=== PATIENT | male | born 1980 | race Caucasian/White ===

== ENCOUNTER 2016-09-03 08:48 | Emergency (ER) | payer SELFPAY ==
[~2016-09-03] VITALS: Ht 165.1 cm; Wt 90.0 kg
[~2016-09-03 08:48] MED LIST: SUBO8MIS SL
[2016-09-03 08:50] VITALS: BP 143/73; PULSE 106; RESP 20; TEMP 98; O2SAT 98
[2016-09-03 09:11] VITALS: BP 150/92; PULSE 92; RESP 16; O2SAT 97
[2016-09-03] MEDS ORDERED: ONDANSETRON ODT 4 MG TAB PO ONE (09:15)
[2016-09-03] MEDS ORDERED: KETOROLAC TROMETHAMINE 60 MG/2 ML (IM) VIAL IM ONE (09:15)
--- NOTE | 2016-09-03 09:28 | PD ---
HPI Chief Complaint: Cold / Flu Symptoms Time Seen by Provider: 09:04 Travel History International Travel<30 days: No Contact w/Intl Traveler<30days: No Traveled to known affect area: No History of Present Illness HPI Patient is a 35 year old male who comes in complaining of cough, fevers and vomiting. He says that he took his children to the beach a few days ago and started coughing immediately afterwards. He is concerned because he says he has had "walking pneumonia" several times. He says he has been feeling induction brazer the mornings, but has not taken his temperature. He says that last night he was coughing so hard he vomited. He says he vomited once this morning, but has eaten a hashbrown since and not vomited. He denies any abdominal pain. He says he feels a little short of breath. He is currently smoking. PFSH Past Medical History Hx Anticoagulant Therapy: No ADHD: Yes Arthritis: No Asthma: No Autoimmune Disease: No Blood Disorders: No Anxiety: Yes Depression: No Heart Rhythm Problems: No Cancer: No Cardiovascular Problems: No High Cholesterol: No Chemotherapy: No Congestive Heart Failure: No COPD: No Cerebrovascular Accident: No Diabetes: No Diminished Hearing: No Endocrine: No Gastrointestinal Disorders: Yes GERD: Yes Glaucoma: No Genitourinary: Yes (PENILE TRAUMA IN 2011) Hepatitis: No Hiatal Hernia: No Hypertension: No Immune Disorder: No Implanted Vascular Access Dvce: No Kidney Stones: No Musculoskeletal: No Neurologic: No Psychiatric: No Reproductive: No Respiratory: No Myocardial Infarction: No Radiation Therapy: No Renal Failure: No Seizures: No Sleep Apnea: No Thyroid Disease: No Ulcer: No Influenza Vaccination: No Past Surgical History AICD: No Body Medical Devices: metal bar in right eyebrow only Genitourinary Surgery: Yes (FOREIGN OBJECT REMOVED FROM PENIS 2011) Pacemaker: No Other Surgery: Yes (malcolm removed from shaft of penis) Social History Alcohol Use: No Tobacco Use: Yes (1/2 PPD) 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 ) Allergies-Medications (Allergen,Severity, Reaction): Coded Allergies: No Known Allergies (Verified , 09/03/16) Reported Meds & Prescriptions Reported Meds & Active Scripts Active Tessalon Perles (Benzonatate) 100 Mg Cap 100 Mg PO TID PRN 7 Days Prednisone 50 Mg Tab 50 Mg PO DAILY 4 Days Proair Hfa 8.5 GM Inh (Albuterol Sulfate) 90 Mcg/Act Aer 2 Puff INH Q4-6H PRN 108 mcg/actuation Reported Suboxone Sublingual Film (Buprenorphine-Naloxone Sublingual Film) 8-2 Mg Film 1 Film SL DAILY Unique ID number required: Review of Systems Except as stated in HPI: all other systems reviewed are Neg General / Constitutional: Positive: Fever HENT: No: Headaches, Lightheadedness Cardiovascular: No: Chest Pain or Discomfort Respiratory: Positive: Cough, Shortness of Breath Gastrointestinal: Positive: Nausea, Vomiting, No: Abdominal Pain Genitourinary: No: Dysuria Musculoskeletal: Positive: Myalgias Skin: No Rash, No Itching Neurologic: No: Weakness, Dizziness Physical Exam Narrative GENERAL: Awake and alert in no acute distress. SKIN: Warm and dry. HEAD: Atraumatic. Normocephalic. EYES: Pupils equal and round. No scleral icterus. ENT: Mucous membranes pink and moist. NECK: Trachea midline. No JVD. CARDIOVASCULAR: Regular rate and rhythm. No murmur appreciated. RESPIRATORY: No accessory muscle use. Clear to auscultation. Breath sounds equal bilaterally. GASTROINTESTINAL: Abdomen soft, non-tender, nondistended. MUSCULOSKELETAL: No obvious deformities. No clubbing. No cyanosis. No edema. NEUROLOGICAL: Awake and alert. No obvious cranial nerve deficits. Motor grossly within normal limits. Normal speech. PSYCHIATRIC: Appropriate mood and affect; insight and judgment normal. Data Data Last Documented VS Vital Signs Date Time Temp Pulse Resp B/P Pulse Ox O2 Delivery O2 Flow Rate FiO2 09/03/16 09:58 85 16 126/69 98 Room Air 09/03/16 08:50 98.0 Orders Chest, Pa & Lat (09/03/16 ) Ondansetron Odt (Zofran Odt) (09/03/16 09:15) Ketorolac Inj (Toradol Inj) (09/03/16 09:15) MDM Medical Decision Making Medical Screen Exam Complete: Yes Emergency Medical Condition: Yes Medical Record Reviewed: Yes Differential Diagnosis URI versus bronchitis versus pneumonia versus gastroenteritis Narrative Course Patient is a 35-year-old male comes in complaining of coughing and vomiting. Exam shows no acute abnormalities. Patient is currently afebrile. Chest x-ray performed shows no acute abnormalities. Patient given Toradol and Zofran. He is able to eat and drink without vomiting. Will be discharged home with prescription for albuterol, prednisone, Tessalon Perles. Advised to quit smoking. Advised to rest and drink plenty of fluids. Advised follow-up with a primary care doctor. Advised to return to the ED as needed for any worsening symptoms. Diagnosis Primary Impression: Cough Additional Impressions: Upper respiratory infection Qualified Code: J06.9 - Viral upper respiratory tract infection Vomiting Qualified Code: R11.2 - Non-intractable vomiting with nausea, unspecified vomiting type Patient Instructions: General Instructions, Upper Respiratory Infection (ED) Additional Instructions: Drink plenty of fluids. Try to quit smoking. Use the albuterol as needed for shortness of breath. Take the Prednisone once a day. Use the cough medicine as needed for coughing. Follow up with a primary care physician. Return to the ED as needed for any worsening symptoms. Scripts Benzonatate (Tessalon Perles)100 Mg [id number] Mg PO TID PRN (COUGH) 7 Days Ref 0 Prov:Zina Ackerman MD 09/03/16 Prednisone 50 Mg Tab50 Mg PO DAILY 4 Days Ref 0 Prov:Zina Ackerman MD 09/03/16 Albuterol 8.5 GM Inh (Proair Hfa 8.5 GM Inh)90 Mcg/Act Aer2 Puff INH Q4-6H PRN ( SHORTNESS OF BREATH) #1 INHALER Ref 0 108 mcg/actuation Prov:Zina Ackerman MD 09/03/16 Disposition: 01 DISCHARGE HOME Condition: Stable Zina Ackerman MD Sep 03, 2016 09:28
--- NOTE | 2016-09-03 09:53 | RADRPT ---
EXAM DATE/TIME: 09/03/2016 09:33 [facility] COMPARISON: CHEST SINGLE AP, August 03, 2016, 17:37. CHEST PA & LAT, November 28, 2013, 19:39. INDICATIONS : Short of breath. MEDICAL HISTORY : None. SURGICAL HISTORY : None. ENCOUNTER: Initial ACUITY: 1 week PAIN SCORE: 3/10 LOCATION: Bilateral chest FINDINGS: PA and lateral views of the chest demonstrate a normal-sized cardiac silhouette. There is no effusion , consolidation, or pneumothorax. The bones and soft tissues demonstrate no acute abnormality. CONCLUSION: No acute cardiopulmonary abnormality is identified. Garth Wise MD on September 03, 2016 at 9:51 Board Certified Radiologist. This report was verified electronically.
[2016-09-03 09:58] VITALS: BP 126/69; PULSE 85; RESP 16; O2SAT 98
[2016-09-03] MEDS ORDERED: BENZ100 PO (10:15)
[2016-09-03] MEDS ORDERED: PRED50 PO (10:15)
[2016-09-03] MEDS ORDERED: ALBUAER3 INH (10:15)
== END 2016-09-03 10:44 | disposition home or self-care (01) ==
LOC: NEPA 08:48
DX: R05 Cough (principal); J06.9 Acute upper respiratory infection, unspecified; R11.2 Nausea with vomiting, unspecified; R50.9 Fever, unspecified; R06.02 Shortness of breath; F17.200 Nicotine dependence, unspecified, uncomplicated; Z86.59 Personal history of other mental and behavioral disorders; Z87.19 Personal history of other diseases of the digestive system
CPT/HCPCS: 71020; 96372; 99283; J1885